=== PATIENT | male | born 1980 | race African-American/Black ===

== ENCOUNTER 2016-09-30 20:45 | Emergency (ER) | payer BC, OTHER ==
[~2016-09-30] VITALS: Ht 175.3 cm; Wt 117.5 kg
[2016-09-30 20:50] VITALS: Ht 175.3 cm; Wt 117.5 kg
[2016-09-30 21:33] LABS: ADD SCAN DIFF NO
[2016-09-30 21:34] LABS: BASOPHIL # 0.1 10^3/ul (0.0-0.1); EOSINOPHILS # 0.2 10^3/ul (0.0-0.5); EOSINOPHILS % 3.5 % (0.0-7.0); HEMATOCRIT 43.2 % (42.0-52.0); HEMOGLOBIN 14.1 g/dl (14.0-18.0); LYMPHOCYTES # 2.3 10^3/ul (0.8-2.9); MEAN CORPUSCULAR HEMOGLOBIN 26.1 pg (29.0-33.0); MEAN CORPUSCULAR HGB CONC 32.6 g/dl (32.0-37.0); MEAN PLATELET VOLUME 9.8 fl (7.4-10.4); MONOCYTE # 0.4 10^3/ul (0.3-0.9); MONOCYTES % 6.9 % (0.0-11.0); NEUTROPHILS % 50.3 % (39.0-77.0); PLATELET COUNT 284 10^3/UL (140-415); RED CELL DISTRIBUTION WIDTH 14.5 % (11.5-14.5)
--- NOTE | 2016-09-30 21:38 | RADRPT ---
PROCEDURE: Left tibia and fibula x-ray CLINICAL INDICATION: Pain. TECHNIQUE: AP, lateral views of the tibia and fibula were obtained. COMPARISON: None FINDINGS: There is cortical thickening along the diaphysis of the left tibia and left fibula. No joint space effusion is noted. IMPRESSION: 1. There are diffuse cortical thickening along the diaphysis of the left tibia and fibula. 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 Chronic osteomyelitis and vascular spaces can a lso be considered. RPTAT:AAJJ Physician Vivian Date Time Electronically viewed and signed by Israel Begum Physician on 09/30/2016 21:38 /
[2016-09-30 21:44] LABS: ALBUMIN 4.4 g/dl (3.3-4.9); INR 0.9; PROTIME 12.1 Sec (12.2-14.2); PT RATIO 0.9
[2016-09-30 21:45] LABS: PARTIAL THROMBOPLASTIN TIME 31.1 Sec (25.0-35.0); POTASSIUM 3.6 mmol/L (3.5-5.1)
[2016-09-30 21:47] LABS: ALBUMIN/GLOBULIN RATIO 1.22; BILIRUBIN,INDIRECT 0.4 mg/dl (0-1.1); BILIRUBIN,TOTAL 0.4 mg/dl (0.2-1.3); CREATININE 0.96 mg/dl (0.61-1.24)
[2016-09-30 21:48] LABS: CALCIUM 9.3 mg/dl (8.4-10.2)
[2016-09-30] MEDS ORDERED: IBUP800T25 PO (22:07)
--- NOTE | 2016-09-30 22:10 | RADRPT ---
PROCEDURE: US Lower extremity Venous. CLINICAL INDICATION: left calf pain TECHNIQUE: Multiple sonographic images of the left lower extremity deep venous system was obtained utilizing grayscale, color-flow, compressive sonography and doppler imaging with augmentation. The images were reviewed on a PACS workstation. COMPARISON: None. FINDINGS: There is normal compressibility and flow within the left common femoral, deep femoral, superficial f emoral and popliteal veins. The deep veins the calf were incompletely visualized. IMPRESSION: No sonographic evidence for deep venous thrombosis in the left lower extremity. Physician Gaurav Date Time Electronically viewed and signed by Physician Gaurav on 09/30/2016 22:09 ML/
--- NOTE | 2016-10-01 22:38 | ERD ---
ER Documentation Chief Complaint Date/Time DATE: 10/01/16 TIME: 22:33 Chief Complaint LEFT ANGULO PAIN SINCE LAST NIGHT, NO TRAUMA HPI This is a 36-year-old male that presents to the emergency department complaining of a sudden onset of severe pain over his left angulo for the past 24 hours. The patient indicates he does a significant amount of walking at his job but denies any specific trauma to his left lower leg. He does not have a history of diabetes and indicates there is been no rash or changes in skin discoloration over the left angulo. He has had no fevers no shaking or chills. He denies any calf tenderness or swelling. Is not taking any analgesic medication prior to arrival. He denies any recent travel or prolonged immobilization. He states the pain is localized over to the lower angulo and does not radiate to the foot, knee or calf region. He has no shortness of breath at rest or exertion. ROS All systems reviewed and are negative except as per history of present illness. Medications Home Meds Active Scripts Ibuprofen* (Ibuprofen*) 800 Mg Tablet, 800 MG PO Q8, #30 TAB Prov:JEANNE CANSECO 09/30/16 Allergies Allergies: Coded Allergies: No Known Drug Allergies (Verified Allergy, Unknown, 03/20/14) PMhx/Soc Medical and Surgical Hx: pt denies Medical Hx, pt denies Surgical Hx History of Surgery: No Anesthesia Reaction: No Hx Neurological Disorder: No Hx Respiratory Disorders: No Hx Cardiac Disorders: No Hx Psychiatric Problems: No Hx Miscellaneous Medical Probl: No Hx Alcohol Use: No Hx Substance Use: No Hx Tobacco Use: No Smoking Status: Never smoker Physical Exam Vitals Vital Signs Date Time Temp Pulse Resp B/P Pulse Ox O2 Delivery O2 Flow Rate FiO2 09/30/16 20:50 98.0 98 20 150/95 100 Physical Exam Constitutional:Well-developed. Well-nourished. Cardiovascular: Regular rate regular rhythm.No murmurs. No rubs were appreciated.S1, S2 normal. Distal pulses are palpable 2+ bilaterally. Muscle skeletal: Full range of motion of both the upper and lower extremities bilaterally.Normal muscle tone.No assymetrical calf tenderness or swelling. Pain over the left distal third tibia with no obvious bony deformities. Pain however not out of proportion to physical exam. Skin: No petechia, no purpura. No lesions on the palms or the soles of the feet. No maculopapular rash. No fluctuance no induration no subcutaneous emphysema no erythremia or warmth over the left angulo region NEURO: Patient was alert, awake, orientated x3.No facial droop. Gait observed and normal with no ataxia.Speech had regular rate and rhythm. No focal neurological deficits. Result Diagram: 09/30/16211709/30/162117 Results 24 hrs Laboratory Tests Test 09/30/16 21:18 White Blood Count 6.010^3/ul Red Blood Count 5.4010^6/ul Hemoglobin 14.1g/dl Hematocrit 43.2% Mean Corpuscular Volume 80.0fl Mean Corpuscular Hemoglobin 26.1pg Mean Corpuscular Hemoglobin Concent 32.6g/dl Red Cell Distribution Width 14.5% Platelet Count 61924^3/UL Mean Platelet Volume 9.8fl Neutrophils % 50.3% Lymphocytes % 38.0% Monocytes % 6.9% Eosinophils % 3.5% Basophils % 1.0% Nucleated Red Blood Cells % 0.0/100WBC Neutrophils # 3.010^3/ul Lymphocytes # 2.310^3/ul Monocytes # 0.410^3/ul Eosinophils # 0.210^3/ul Basophils # 0.110^3/ul Nucleated Red Blood Cells # 0.010^3/ul Prothrombin Time 12.1Sec Prothrombin Time Ratio 0.9 INR International Normalized Ratio 0.90 Activated Partial Thromboplast Time 31.1Sec Sodium Level 140mmol/L Potassium Level 3.6mmol/L Chloride Level 102mmol/L Carbon Dioxide Level 27mmol/L Anion Gap 15 Blood Urea Nitrogen 14mg/dl Creatinine 0.96mg/dl Glucose Level 144mg/dl Calcium Level 9.3mg/dl Total Bilirubin 0.4mg/dl Direct Bilirubin 0.00mg/dl Indirect Bilirubin 0.4mg/dl Aspartate Amino Transf (AST/SGOT) 22IU/L Alanine Aminotransferase (ALT/SGPT) 36IU/L Alkaline Phosphatase 46IU/L Total Protein 8.0g/dl Albumin 4.4g/dl Globulin 3.60g/dl Albumin/Globulin Ratio 1.22 Procedures/MDM This patient presented to the emergency department with left angulo pain and no specific trauma. I obtain a venous duplex ultrasound of the left lower extremity which indicated no evidence of a deep vein thrombosis. Radiographic imaging 2 views of the left tib-fib ordered and reviewed by myself as well as the radiologist indicated the following: There are diffuse cortical thickening along the diaphysis of the left tibia and fibula. 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 Chronic osteomyelitis and vascular spaces can also be considered I reviewed the radiographs with the patient and he indicates that there is diffuse cortical thickening along the diaphysis has been present since he was a child is he has had previous radiographic imaging another facility which he has reviewed. His physical exam findings did not suggest osteomyelitis. There is no leukocytosis and no electrolyte abnormalities. My physical exam findings did not suggest an acute life-threatening etiology such as compartment syndrome or necrotizing fasciitis. I did feel the patient be safely discharged home with an outpatient MRI. He was given anti-inflammatories for suspected angulo splints. There is no signs of vascular or arterial insufficiency. The patient was discharged home in fair condition. They were instructed to return to the emergency department at any time if there was any worsening of their condition. The patient stated they would follow up with their PCP in the next 24-48 hours to initiate a suitable medication regimen under the care of their PCP as well as to allow their PCP to monitor any drug reactions. The patient was discharged home with prescriptions after they gave informed consent to the new medication. They were also fully informed by myself on the adverse effects and adverse drug interactions in order to provide adequate safeguards to prevent possible adverse reactions to medications. Departure Diagnosis: Primary Impression: Angulo splint Encounter type: initial encounter Laterality: left Qualified Code: S86.892A - Angulo splint, left, initial encounter Condition: Fair Patient Instructions: Angulo SplJEANNE Singh Oct 01, 2016 22:38
== END 2016-09-30 22:12 | disposition home or self-care (01) ==
LOC: EEVIPCON 20:45 → FTE 20:45
DX: S86.892A Other injury of other muscle(s) and tendon(s) at lower leg level, left leg, initial encounter (principal); X58.XXXA Exposure to other specified factors, initial encounter; Y92.9 Unspecified place or not applicable
CPT/HCPCS: 73590; 80053; 85025; 85610; 85730; 93971

== ENCOUNTER 2018-06-05 15:23 | Emergency (ER) | END 2018-06-05 17:12 | disposition home or self-care (01) ==